=== PATIENT | male | born 1950 | race Caucasian/White ===

== ENCOUNTER → 2019-04-21 | Outpatient (CLI) | payer OTHER, MEDICAID ==
[~2019-04-21] MED LIST: CARVEDILOL12.5 MG PO; CRESTOR40 MG PO; LISINOPRIL20 MG PO; METFORMIN HCL1000 MG PO; PLAVIX 75 MG TA75 MG PO; ZETIA10 MG PO
== END ==
LOC: M.MRI 09:05
DX: S83.241A Other tear of medial meniscus, current injury, right knee, initial encounter (principal); X58.XXXA Exposure to other specified factors, initial encounter; Y93.89 Activity, other specified; Y92.89 Other specified places as the place of occurrence of the external cause; Y99.8 Other external cause status

== ENCOUNTER → 2019-04-21 | Outpatient (CLI) | payer OTHER, MEDICAID ==
[~2019-04-21] VITALS: Ht 175.3 cm; Wt 81.2 kg
[2019-04-21 10:46] LABS: URINE BILIRUBIN NEGATIVE (Negative); URINE BLOOD NEGATIVE (Negative); URINE CLARITY CLEAR; URINE COLOR YELLOW; URINE GLUCOSE-RANDOM TRACE (Negative); URINE KETONES NEGATIVE (Negative); URINE LEUKOCYTES-REFLEX NEGATIVE (Negative); URINE NITRITE-REFLEX NEGATIVE (Negative); URINE PROTEIN TRACE (Negative); URINE SPECIFIC GRAVITY >= 1.030 (1.005-1.030)
[2019-04-21 10:48] LABS: HEMATOCRIT 42.6 % (42.0-52.0); HEMOGLOBIN 14.5 gm/dL (14.0-18.0); MCH 29.8 pg (26.0-34.0); MCV 87.8 fL (80.0-100.0); MPV 9.1 fl. (7.2-11.1); RBC 4.85 mil/uL (4.50-6.00); RDW-CV 15.4 % (10.5-14.5); WBC 8.9 thou/uL (4.0-11.0)
[2019-04-21 11:00] LABS: PROTIME 9.9 Seconds (9.20-11.50)
[2019-04-21 11:19] LABS: ALBUMIN 3.4 g/dL (3.4-5.0); CALCIUM 8.8 mg/dL (8.5-10.1); CREATININE 1.1 mg/dL (0.6-1.3); POTASSIUM 3.9 mmol/L (3.5-5.1); TOTAL BILIRUBIN 0.6 mg/dL (<0.1-1.0); TOTAL PROTEIN 7.5 g/dL (6.4-8.2)
--- NOTE | 2019-05-07 14:53 | EKG ---
[place] [address] ELECTROCARDIOGRAM REPORT Name: DON CALABRESE Room: [facility]#: [id number] Admission: 04/21/19 Attend Phys: Salo Hunt, Discharge: Date of : 54 Date of Service: 04/21/19 1058 Report #: [id number] THIS REPORT FOR: //name// [facility] Test Date: 2019-04-21 Test Time: 10:58:19 Pat Name: DON CALABRESE Department: Room: Gender: Director Search Marketing Strategies: : 1950 Requested By: Salo Hunt Order Number: [id number] MD: Bardy Cho Measurements Intervals [place] Rate: 48 P: 50 DE: 172 QRS: 24 QRSD: 190 T: 134 QT: 460 QTc: 411 Interpretive Statements Sinus bradycardia Multiple ventricular premature complexes Probable inferior infarct, old No previous ECG available for comparison Electronically Signed On 04-22-2019 11:10:59 [employer] by Brady Cho [email or web address] <ELECTRONICALLY SIGNED> By: Brady Cho MD, [facility] 04/22/19 1110 1058 1058 Brady Cho MD, FACC /EPI
== END ==
LOC: M.LAB 08:00 → M.PRE 05-04 08:48 → EDSTATUS 05-04 12:51 → M.PRE 05-04 13:05
PROVIDERS: Orthopaedic Surgery
DX: Z01.818 Encounter for other preprocedural examination (principal); M17.11 Unilateral primary osteoarthritis, right knee

== ENCOUNTER 2019-08-24 06:52 | Observation (INO) | payer OTHER, MEDICAID ==
[2019-08-17 10:20] LABS: HEMATOCRIT 50.2 % (42.0-52.0); HEMOGLOBIN 16.9 gm/dL (14.0-18.0); MCH 30.5 pg (26.0-34.0); MCHC 33.6 g/dL (28.0-37.0); MCV 90.9 fL (80.0-100.0); RBC 5.53 mil/uL (4.50-6.00); RDW-CV 15.3 % (10.5-14.5); WBC 8.6 thou/uL (4.0-11.0)
[2019-08-17 10:40] LABS: PROTIME 10.1 Seconds (9.20-11.50)
[2019-08-17 10:44] LABS: URINE BILIRUBIN NEGATIVE (Negative); URINE BLOOD TRACE (Negative); URINE CLARITY CLEAR; URINE COLOR YELLOW; URINE GLUCOSE-RANDOM NEGATIVE (Negative); URINE KETONES NEGATIVE (Negative); URINE LEUKOCYTES-REFLEX NEGATIVE (Negative); URINE NITRITE-REFLEX NEGATIVE (Negative); URINE PROTEIN 2+ (Negative); URINE SPECIFIC GRAVITY 1.025 (1.005-1.030)
[2019-08-17 10:55] LABS: CASTS None Seen /LPF (None Seen); CRYSTALS None Seen /LPF (None Seen); MUCUS 4-6 Moderate strn/LPF (None Seen); SQUAMOUS 4-10 Moderate /LPF (0-3); URINE RBC 3-10 Few /HPF (0-2); URINE WBC-REFLEX 0-5 Rare /HPF (0-5)
[2019-08-17 11:04] LABS: ALBUMIN 3.8 g/dL (3.4-5.0); CREATININE 1.3 mg/dL (0.6-1.3); POTASSIUM 4.5 mmol/L (3.5-5.1); TOTAL BILIRUBIN 0.6 mg/dL (<0.1-1.0); TOTAL PROTEIN 7.6 g/dL (6.4-8.2)
[~2019-08-24] VITALS: Ht 175.3 cm; Wt 83.0 kg
[2019-08-24 11:00] VITALS: BP 151/91
[2019-08-24 15:15] VITALS: BP 179/76
[2019-08-24] MEDS ORDERED: PERCOCET 5-3251 EACH PO (15:56)
[2019-08-24] MEDS ORDERED: XARELTO10 M1 PO (15:58)
[2019-08-24 16:24] VITALS: BP 179/76
[2019-08-24] MEDS ORDERED: COLACE100 MG PO (16:24)
--- NOTE | 2019-08-24 17:17 | NUR ---
PT ADMITTED TO ROOM 114 FROM PACU S/P RTKR. PT STABLE AND AOx4. PT C/O NO PAIN P SURGERY. PT ON 2L O2 TO MAINTAIN O2 SATS. RECEIVING IVF AND TOELRATING WELL. ADVANCED TO REG DIET. SURGICAL DRSG TO L KNEE CDI.
[2019-08-24 19:30] VITALS: BP 165/87
[2019-08-24 23:17] VITALS: BP 152/76
[2019-08-25 03:19] VITALS: BP 162/78
--- NOTE | 2019-08-25 04:19 | NUR ---
PT A&OX4, ON 2L NC WITH CONTINUOUS PULSE OX, VSS, HEMO VAC IN PLACE, IV FLUIDS INFUSING ORDERED, PAIN MEDS REQUESTED AND GIVEN ORDERED. WILL CONTINUE WITH PLAN OF CARE.
[2019-08-25 04:48] LABS: HEMATOCRIT 43.1 % (42.0-52.0); HEMOGLOBIN 14.7 gm/dL (14.0-18.0)
[2019-08-25 07:35] VITALS: BP 154/67
--- NOTE | 2019-08-25 10:00 | NUR ---
PT.UP IN CHAIR. INTRODUCED ROLE OF CM. HE SAID HE LIVES ALONE IN A SR.APT. NO STAIRS-ONLY ELEVATORS. HE HAS A FRONT WHEEL WALKER IN HIS ROOM FROM HOME. HE IS NORAMALLY INDEPENDENT AT HOME. HE HAS A BROTHER BUT NO ONE CAN STAY WITH HIM. HE IS CONCERNED OF GOING HOME ALONE. HE SAID NO ONE WOULD BE ABLE TO HELP HIM WITH CPM OR POLAR PACK. HE WOULD LIKE TO LOOK INTO REHAB OR SNF. IF HE CANNOT GO TO REHAB HE WOULD LIKE A REFERRAL MADE TO [facility]. CM FAXED REFERRAL TO [facility] BUT ASKED THEM NOT TO SUBMIT AUTH UNTIL KNOWN IF PT.CAN GO TO OUR IN REHAB.
[2019-08-25 12:00] VITALS: BP 167/64
--- NOTE | 2019-08-25 12:27 | OP ---
[address] [address] OPERATIVE REPORT Name: DON CALABRESE Room: [address] IN M.R.#: [id number] Admission: 08/24/19 Attend Phys: Jolly Mariscal Discharge: Date of : 54 Report #: [id number] THIS REPORT FOR: //name// cc: Rafa Soria MD, Timothy J. MD ~ THIS REPORT FOR: //name// CC: Salo Nielsen DATE OF SERVICE: 08/24/2019 PREOPERATIVE DIAGNOSIS: Right knee osteoarthritis. POSTOPERATIVE DIAGNOSIS: Right knee osteoarthritis. PROCEDURE: Right total knee arthroplasty. SURGEON: Salo Hunt II, DO MACHINE MADE SHOE UNIT WORKER: RICH Moreland ANESTHESIA: General endotracheal. ESTIMATED BLOOD LOSS: 50 mL. ANTIBIOTICS: Ancef preoperatively. DRAINS: Medium Hemovac. COMPLICATIONS: None. CONDITION OF THE PATIENT: Stable to recovery room. IMPLANTS: Listed in operative record and progress note. BRIEF HISTORY: The patient was seen in the preoperative area. Preoperative H and P was performed. Site was marked, questions were answered. Risks and benefits were discussed with the patient in detail about surgery. The patient wished to proceed assuming all risks. DESCRIPTION OF PROCEDURE: The patient was taken to the operative suite and placed supine on the operative table, given appropriate anesthesia. A well-padded tourniquet applied to upper thigh, which was inflated to 300 mmHg after gravity exsanguination. The operative knee was sterilely prepped and [facility] [address] [place] [address] OPERATIVE REPORT Name: DON CALABRESE Room: [address] M.R.#: [id number] Admission: 08/24/19 Attend Phys: Jolly Mariscal Discharge: Date of : 54 Report #: [id number] draped. Surgery began by midline incision. This was carried down to the subcutaneous tissues. A medial parapatellar arthrotomy was performed and carried down to bone. Patella was then everted and excess soft tissue was removed from around the femur. Femoral cutting block was then applied, checked with drop cammie for rotational alignment, pinned in appropriate position and appropriate cuts were made. A 4-in-1 cutting block was then applied, checked for rotational alignment, pinned in appropriate position and appropriate cuts were made. The tibia was then exposed. Excess meniscus was removed. Retractor was placed on collateral ligaments. The tibial cutting block was then applied, pinned in appropriate position, checked with drop cammie for rotational alignment and slope and appropriate cut was made. The tibial bone was removed. The tibial base plate was then applied, checked for rotational alignment with the drop cammie and pinned in appropriate position. The femur was then applied and box cut was reamed. This was then trialed with appropriate spacer, which showed excellent fit and fill and excellent stability of knee through all range of motion. The patella was reamed in appropriate fashion and sized to appropriate size. Three peg holes were drilled. It was then trialed and showed excellent flexion, extension, excellent tracking of the patella within the groove. These trials were then removed. The tibia was punched in appropriate fashion. Bone ends were cleansed with Pulsavac irrigation and cement was mixed and applied to final implants. These were then malleted into position and held the knee in extension and compressed to allow cement to cure. After it cured, excess was removed using a Odin and osteotome. Wound was then copiously irrigated and the final spacer was then malleted into position. Tourniquet was deflated. Hemostasis was maintained with electrocautery. Pain cocktail was injected. PRP gel was sprayed throughout the internal aspects of the knee. Medium Hemovac drain was applied. The capsule was closed with #2 FiberWire and 1-0 Vicryl in [id number] fashion. Skin was closed with 2-0 Vicryl and running 3-0 Monocryl. Dermabond and sterile dressing applied. Billy wrap and PolarCare applied. The patient was transported to recovery room in stable condition. Counts were correct throughout the procedure. <ELECTRONICALLY SIGNED> By: Salo Hunt II, DO 08/25/19 1227 2142 [id number] Hunt II, DO /nt
--- NOTE | 2019-08-25 14:43 | NUR ---
PHYSICAL THERAPIST NOTED A SMALL FOOT DROP, DR LAWRENCE'S OFFICE CALLED AND GIVEN ORDERS TO REASSESS TOMORROW IF STILL THERE. WILL CONTINUE TO MONITOR.
[2019-08-25 14:57] VITALS: BP 179/76
[2019-08-25 15:45] VITALS: BP 143/60
--- NOTE | 2019-08-25 16:00 | NUR ---
FAXED PT/OT INFORMATION TO PATRICIO AT [facility].
--- NOTE | 2019-08-25 16:31 | NUR ---
PT REMAINED ALERT AND ORIENTED. PT RESTING IN BED. PT UP WITH THERAPY. PAIN MEDS GIVEN ORDERED. FALL RISK PRECAUTIONS IN PLACE. HOURLY ROUNDING COMPLETED. WILL CONTINUE TO MONITOR.
[2019-08-26 03:41] LABS: HEMATOCRIT 41.2 % (42.0-52.0); HEMOGLOBIN 13.9 gm/dL (14.0-18.0)
[2019-08-26 07:26] VITALS: BP 168/70
[2019-08-26] MEDS ORDERED: PERCOCET PO (07:42)
--- NOTE | 2019-08-26 08:16 | NUR ---
PT.TOO HIGH LEVEL OF FUNCTION FOR INPT.REHAB. WILL CONTINUE TO PROCEED WITH SNF.
--- NOTE | 2019-08-26 08:39 | NUR ---
PATIENT HAS SLEPT WELL THROUGHOUT THE NIGHT. VSS ON RA. MEDICATIONS GIVEN ORDERED AND CHARTED. ASSESSMENT CHARTED. DRESSING TO RIGHT KNEE IS C/D/I, AND SCD'S, CHELLE HOSE AND POLAR PACK IN PLACE. IV N LEFT FOREARM-SL. PATIENT INSTRUCTED TO USE CALL LIGHT WHEN NEEDING ASSISTANCE. HOURLY ROUNDS MADE. WILL CONTINUE WITH PLAN OF CARE AND NURSING TO MONITOR.
[2019-08-26 09:45] VITALS: BP 179/76
[2019-08-26 09:47] VITALS: BP 179/76
--- NOTE | 2019-08-26 15:15 | NUR ---
CALLED TO CHECK IF [facility] CAN ACCEPT PT. SPOKE WITH PATRICIO/SHANIQUE. SHE SAID SHE NOTED PT.DOES MARIJUANA. SHE ASKED IF IT WAS MEDICINAL OR FOR REACREATION. TOLD HER I DOUBTED IT WAS MEDICINAL HE HAS NOT HAD ANY DURING HOSPITAL STAY BUT THAT I WOULD SPEAK WITH HIM AND LET HER KNOW. SPOKE WITH PT. HE SAID IT WAS RECREATIONAL. LEFT FOR PATRICIO/KEYANA.
--- NOTE | 2019-08-26 18:41 | NUR ---
PT A&Ox4. VITALS STABLE. IV PATENT. PAIN CONTROLLED WITH PERCOCET. DENIED NAUSEA. DRESSING C/D/I. CPM COMPLETED FOR 2 HOURS AFTER LUNCH -5 TO 65. POLAR PACK, CHELLE HOSE AND FOOT PUMPS IN PLACE. UP STB ASSIST. WAITING INSURANCE AUTH FOR SKILLED. FALL PRECAUTIONS IN PLACE. CALL LIGHT WITHIN REACH. WILL CONTINUE TO MONITOR.
[2019-08-26 20:50] VITALS: BP 173/67
--- NOTE | 2019-08-27 05:20 | NUR ---
PATIENT HAS REMAINED ALERT AND ORIENTED X 4 THROUGHOUT THE SHIFT AND RESTING QUIETLY ON HOURLY ROUNDS. BM AT HS. AMBULATION WITH WALKER AND GAIT BELT TO BR WITH CGA. MEDICATED FOR PAIN AT 2213. PLANS FOR PRE-MEDICATION FOR EARLY CPM. PATIENT DID HOWEVER, WAKE-UP IN PAIN BEFORE PLANNED TIME AND DID NOT CALL. AT 0458 MEDICATED WITH PAIN NUMBER INCREASED TO 7/10. VITAL SIGNS STABLE WITH HYPERTENSION. DRESSING RIGHT KNEE CLEAN AND DRY. CONTINUE TO MONITOR.
[2019-08-27 06:00] VITALS: BP 186/74
[2019-08-27 08:02] VITALS: BP 176/63
--- NOTE | 2019-08-27 14:35 | NUR ---
SPOKE WITH GEOVANI (ADMIN DIRECTOR) FOR [facility]. SHE REVIEWED CASE WITH CM SEMIAUTOMATIC TAPER OPERATOR OVER THE PHONE AND THEY WILL ACCEPT PATIENT. INS AUTH SUBMITTED THIS MORNING. GEOVANI CAN BE REACHED AT [phone]. SHE WILL COMMUNICATE WITH CM TEAM ONCE AUTH STATUS HAS BEEN DETERMINED. PATIENT WILL LIKELY DISCHARGE TOMORROW. CM TO CONTINUE TO FOLLOW FOR SAFE DISCHARGE PLANNING.
[2019-08-27 16:19] VITALS: BP 171/65
--- NOTE | 2019-08-27 17:07 | NUR ---
PT.UPDATED ON STATUS OF SNF AUTH WITH INSURANCE. EXPLAINED THAT HE MIGHT BE HERE OVER THE WEEKEND IF [facility] DOES NOT RECEIVE AUTH FROM INSURANCE. IF INSURANCE DENIES, ON FRIDAY,HE WILL NEED TO BE DISCHARGED HOME WITH HOME HEALTH. TOLD HIM HE WILL NEED TO FIND A FRIEND, FAMILY TO ASSIST HIM AND WE WILL SET UP HH FOR HIM.
--- NOTE | 2019-08-27 18:11 | NUR ---
PT A&Ox4. VITALS STABLE. UP WITH STAND BY ASSIST. DRESSING C/D/I. CHELLE HOSE, FOOT PUMPS AND POLAR PACK IN PLACE. PT HAVING MODERATE PAIN TODAY, PARTIALLY CONTROLLED WITH ORAL PAIN MEDS. DENIED N/V. TOLERATED MEALS WELL. BM YESTERDAY. FALL PRECAUTIONS IN PLACE. CALL LIGHT WITHIN REACH. WILL CONTINUE TO MONITOR.
[2019-08-27 19:40] VITALS: BP 179/78
[2019-08-28 05:00] VITALS: BP 169/70
--- NOTE | 2019-08-28 06:15 | NUR ---
PATIENT HAS REMAINED ALERT AND ORIENTED X 4 THROUGHOUT THE SHIFT AND RESTING QUIETLY ON HOURLY ROUNDS. IMPROVED PAIN MANAGEMENT WITH A MORE SCHEDULED PROVISION OF MEDICATION TONIGHT. CURRENTLY ON CPM. UP WITH WALKER, GAIT BELT AND CGA. SOME ASSIST GETTING RIGHT LEG IN AND OUT OF BED AT TIMES. PASSING GAS. ADEQUATE VOIDS. VITAL SIGNS STABLE WITH HYPERTENSION. DRESSING RIGHT KNEE CLEAN AND DRY. POLARCARE, CHELLE HOSE, FOOT PUMPS AND INCENTIVE SPIROMETER IN USE AT BEDSIDE. CONTINUE TO MONITOR.
[2019-08-28 08:45] VITALS: BP 170/84
[2019-08-28] MEDS ORDERED: CELEBREX 200 M200 MG PO (08:49)
[2019-08-28] MEDS ORDERED: MIRALAX17 GM PO (08:49)
[2019-08-28 16:00] VITALS: BP 166/79
--- NOTE | 2019-08-28 17:36 | NUR ---
PATIENT ALERT AND ORIENTED X 4. VITAL SIGNS STABLE ON ROOM AIR. AFEBRILE. UP WITH ASSISTANCE TO THE BEDSIDE COMODE. VOIDING PER URINAL. IV PATENT AND SALINE LOCKED. PAIN BEING MANAGED WITH PO MEDICATION. DENIES NAUSEA AT THIS TIME. DRESSING TO RIGHT KNEE CLEAN, DRY, INTACT. POLAR CARE IN PLACE. FOOT PUMPS IN PLACE BILATERALLY. FALL PRECAUTIONS IN PLACE AND BED ALARM ON. HOURLY ROUNDS MAINTAINED THROUGHOUT THE SHIFT. CALL LIGHT WITHIN REACH. NURSING WILL CONTINUE TO MONITOR.
[2019-08-28 19:30] VITALS: BP 169/79
--- NOTE | 2019-08-29 06:03 | NUR ---
PAIN MANAGEMENT/CONSTIPATION ARE HIS CONCERNS. HE RECEIVED 2 OXYCODONE 2X FOR PAIN DURING SHIFT. HE DID ATTEMPT TO HAVE A BM IN RESTROOM BEFORE BEDTIME. POLAR PACK, FOOT PUMPS IN PLACE. ON ROOM AIR. REFUSED MILK OF MAGNESIA UPON SUGGESTION. WILL CONTINUE TO MONITOR.
[2019-08-29 08:30] VITALS: BP 177/76
[2019-08-29 12:04] VITALS: BP 149/60
[2019-08-29 16:24] VITALS: BP 108/59
--- NOTE | 2019-08-29 16:30 | NUR ---
PATIENT ALERT AND ORIENTED X 4. VITAL SIGNS STABLE ON ROOM AIR. UP WITH ASSISTANCE TO THE BATHROOM AND VOIDING PER URINAL. IV PATENT AND SALINE LOCKED. PAIN BEING MANAGED WITH PO MEDICATION. DENIES NAUSEA AT THIS TIME. AMBULATED IN HALLWAY WITH THERAPY. CHELLE HOSE AND FOOT PUMPS IN PLACE BILATERALLY. DRESSING TO RIGHT KNEE CLEAN, DRY, INTACT. POLAR CARE IN PLACE TO RIGHT KNEE. FALL PRECAUTIONS IN PLACE AND BED ALARM ON. HOURLY ROUNDS MAINTAINED THORUGHOUT THE SHIFT. CALL LIGHT WITHIN REACH. NURSING WILL CONTINUE TO MONITOR.
[2019-08-29 20:00] VITALS: BP 151/62
--- NOTE | 2019-08-30 05:52 | NUR ---
STILL NO BM. GAVE PRUNE JUICE AND MILK OF MAG PRN TO ASSIST IN. ENCOURAGED HYDRATION AND TO AMBULATE. RECEIVED 10 MG OXY AT 0200. HE REPORTED SOME BACK PAIN FROM IMMOBILITY AND THE BED. USED URINAL THROUGH NIGHT AND WAS ABLE TO SLEEP WELL MOST OF THE SHIFT. WILL CONTINUE TO FOLLOW PLAN OF CARE.
--- NOTE | 2019-08-30 06:00 | NUR ---
PATIENT REFUSES CPM THIS AM
[2019-08-30 08:00] VITALS: BP 181/69
--- NOTE | 2019-08-30 13:00 | NUR ---
INSURANCE DENIED SNF AT [facility]. INFORMED PT.AND EXPLAINED HIS ONLY OPTION WAS TO GO HOME WITH HH. HE WAS DOING WELL IN THERAPY. TOLD HIM HH WOULD BE SET UP WITH [facility]. THEY WOULD CALL HIM TO SET UP APPTS. FAXED REFERRAL INFORMATION AND DISCHARGE SUMMARY TO [facility]. GAVE PT.RESOURCESW FOR PRIVATE DUTY, [employer] THAT DELIVER,ETC. DISCUSSED CPM AND POLAR JODI. HE WAS GOING TO CALL HIS BROTHER TO PICK HIM UP. HE WAS NOT HAPPY NOT GETTING TO GO TO SNF. TOLD HIM IT WAS HIS INSURANCE THAT DENIED. INFORMED ADINA MAR OF ABOVE.
[2019-08-30] MEDS ORDERED: SENOKOT-S TABL1 EACH PO (14:30)
--- NOTE | 2019-08-30 15:25 | NUR ---
ASSUMED PT CARE AT 0730. ASSESSMENT COMPLETED CHARTED. ABLE TO MAKE NEEDS KNOWN. UP WITH SBA WITH WALKER. C/O PAIN AND GAVE PAIN MEDS PER EMAR. UP IN CHAIR AND BACK TO BED. DISCHARGE TO HOME R/T NOT GETTING AUTH FOR SNF. PT UPSET AND FRUSTRATED. DISCHARGE WENT OVER WITH PT BUT PT DISTRACTED. IV REMOVED. ALL BELONGINGS TAKEN WITH PT TO [employer] AT 1525. NO OTHER QUESTIONS OR CONCERNS NOTED.
== END 2019-08-30 15:25 | disposition home health service (06) ==
LOC: M.PRE 06:52 → M.TBA 09:55 → M.ORTHSURG 09:55 → M.TBA 12:04 → M.ORTHSURG 12:04 → M.PRE 14:34 → M.ORTHSURG 15:09
PROVIDERS: Orthopaedic Surgery; ADMIT Internal Medicine; ATTEND Internal Medicine
DX: Z03.818 Encounter for observation for suspected exposure to other biological agents ruled out (principal); M17.11 Unilateral primary osteoarthritis, right knee